=== PATIENT | female | born 1950 | race Caucasian/White ===

== ENCOUNTER 2022-05-13 21:30 | Inpatient (IN) | payer MEDICARE, OTHER, SELFPAY ==
[2022-05-13] MEDS ORDERED: NOREPINEPHRINE 8 MG/250 ML-D5W 250 ML ONE (21:45)
[2022-05-13] MEDS ORDERED: Albuterol Sulfate 2.5 mg/0.5 ml Neb ONE (21:47)
[2022-05-13] MEDS ORDERED: EPINEPHrine 1 MG/10 ML Abboject SYRINGE ONE (21:49)
[2022-05-13] MEDS ORDERED: Amiodarone 150 MG/3 ML VIAL ONE (21:49)
[2022-05-13] MEDS ORDERED: Magnesium 5 GM/10 ML Abboject SYRINGE ONE (21:49)
[2022-05-13 22:01] LABS: Mean Corpuscular HGB CONC 30.3 g/dL (32.0-36.0); Mean Platelet Volume 9.6 fL (7.4-10.4); Platelet Count 207 thou/uL (130-400); RBC Distribution Width 11.9 % (11.5-14.5); Red Blood Cell (RBC) Count 4.84 mill/uL (4.20-5.40); White Blood Cell (WBC) Count 10.9 thou/uL (4.8-10.8)
[2022-05-13 22:22] LABS: ALT (SGPT) 541 U/L (8-55); AST (SGOT) 1007 U/L (5-34); Albumin 3.3 g/dL (3.4-4.8); Alkaline Phosphatase 83 U/L (40-110); Anion Gap 27 mmol/L (10-20); BUN (Urea Nitrogen) 56 mg/dL (9.8-20.1); Bilirubin, Total 0.7 mg/dL (0.2-1.2); Calc. Creatinine Clearance 0 mL/min (70-130); Calcium 10.9 mg/dL (7.8-10.44); Carbon Dioxide 21 mmol/L (23-31); Chloride 94 mmol/L (98-107); Estimated GFR 43; Globulin 2.8 g/dL (2.4-3.5); Glucose 203 mg/dL (83-110); Potassium 5.2 mmol/L (3.5-5.1); Protein, Total 6.1 g/dL (5.8-8.1); Sodium 137 mmol/L (136-145)
[2022-05-13 22:24] LABS: Actual Bicarbonate (HCO3a) 18.2 mEq/L (22-28); Analyzer IN Cardio ER; Base Excess (BEa) -12.8 mEq/L (-2.0 to +3.0); Calcium, Ionized (arterial) 1.22 mmol/L (1.12-1.30); Carboxyhemoglobin (COHb) 1.1 gm% (0.0-3.0); Hemoglobin (Hb) 16.4 g/dL (12.0-16.0); O2 Tension (PaO2), arterial 362.8 mmHg (> 60.0); Potassium - ABG Lab 3.22 mmol/L (3.70-5.30)
[2022-05-13 22:29] LABS: Band 38 % (5-11); Lymphocytes 16 % (21-51); MDiff Complete? YES; Monocytes 16 % (0-10); Myelocyte 1 % (0-0); Neutrophil 29 % (42-75)
[2022-05-13 22:46] LABS: CO2 Tension 63.5 mmHg (35.0-45.0); Puncture Site RFA; pH, Arterial 7.08 (7.35-7.45)
[2022-05-13 22:47] LABS: ALV-art Gradient 270.825 mmHg (0-20)
[2022-05-13 22:49] LABS: CKMB 3.1 ng/mL (0-6.6)
[2022-05-13] MEDS ORDERED: Pantoprazole 40 MG VIAL ONE (23:05)
[2022-05-13] MEDS ORDERED: Electrolyte Replacement Protocol 1 EACH IVPB PRN (23:15)
[2022-05-13] MEDS ORDERED: Ventilator Sedation Protocol 1 EACH FS SCH (23:15)
[2022-05-13] MEDS ORDERED: Ondansetron PF 4 MG/2 ML Vial IVP PRN (23:15)
[2022-05-13] MEDS ORDERED: Fentanyl CADD 100 ML IV SCH (23:15)
[2022-05-13] MEDS ORDERED: HumaLOG 300 UNITS/3 ML VIAL SC PRN ×2 (23:15)
[2022-05-13] MEDS ORDERED: Sodium Bicarbonate 150 MEQ in Dextrose 5% in Water 1,000 ML IV SCH (23:15)
[2022-05-13] MEDS ORDERED: Amiodarone 150 MG, Admixture Fee 1 EACH in Dextrose 5% in Water 100 ML IVPB SCH (23:15)
[2022-05-13 23:25] LABS: SARS-CoV-2 NAA Rapid Test Not Detected (NotDetected)
[2022-05-13 23:48] LABS: Actual Bicarbonate (HCO3a) 19.2 mEq/L (22-28); Analyzer IN Cardio ER; CO2 Tension 49.7 mmHg (35.0-45.0); Calcium, Ionized (arterial) 1.15 mmol/L (1.12-1.30); Carboxyhemoglobin (COHb) 0.9 gm% (0.0-3.0); Hemoglobin (Hb) 17.4 g/dL (12.0-16.0); O2 Tension (PaO2), arterial 230.9 mmHg (> 60.0); Potassium - ABG Lab 3.15 mmol/L (3.70-5.30)
[2022-05-13 23:49] LABS: pH, Arterial 7.21 (7.35-7.45)
[2022-05-13 23:50] LABS: ALV-art Gradient 63.475 mmHg (0-20); Puncture Site RFA
[2022-05-14] MEDS ORDERED: Midazolam HCl 2 mg/2 ml Vial SLOW IVP PRN ×2 (00:25→13:41)
[2022-05-14] MEDS ORDERED: Propofol 1,000 MG/100 ML VIAL IV PRN (00:30)
[2022-05-14] MEDS ORDERED: DISCONTINUE PREVIOUS NARCOTIC PAIN MEDICATIONS AND BENZODIAZEPINES FS SCH (00:30)
[2022-05-14] MEDS ORDERED: Morphine 4 MG/ML VIAL SLOW IVP PRN ×2 (00:30→13:40)
[2022-05-14] MEDS ORDERED: Propofol BOLUS 1,000 MG/100 ML VIAL IV PRN (00:30)
[2022-05-14] MEDS ORDERED: Fentanyl BOLUS 250 ML IVPB PRN (00:30)
[2022-05-14] MEDS ORDERED: Fentanyl CADD 100 ML IV SCH (00:30)
[2022-05-14] MEDS ORDERED: Cefepime 2 GM in Sodium Chloride 0.9% 100 ML IVPB SCH ×2 (00:45→14:00)
[2022-05-14 01:21] LABS: Lactic Acid 12.5 mmol/L (0.5-2.2)
[2022-05-14] MEDS: methylPREDNISolone Sod Succ 40 MG VIAL IVP SCH ×3 (01:52→12:01)
[2022-05-14 02:10] VITALS: BMI 21.2
[2022-05-14] MEDS ORDERED: Enoxaparin Sodium 60 MG/0.6 ML SYRINGE SC SCH (03:00)
[2022-05-14 04:50] LABS: Band 65 % (5-11); Hemoglobin 17.2 g/dL (12.0-16.0); Lymphocytes 6 % (21-51); MDiff Complete? YES; Mean Corpuscular HGB CONC 30.6 g/dL (32.0-36.0); Mean Corpuscular Hemoglobin 30.5 pg (27.0-31.0); Mean Corpuscular Volume 99.6 fl (78.0-98.0); Metamyelocyte 10 % (0-0); Monocytes 3 % (0-10); Myelocyte 1 % (0-0); Neutrophil 14 % (42-75); Platelet Count 176 thou/uL (130-400); RBC Distribution Width 11.9 % (11.5-14.5); Reactive Lymphocytes 1 % (0-10); Red Blood Cell (RBC) Count 5.64 mill/uL (4.20-5.40); White Blood Cell (WBC) Count 9.4 thou/uL (4.8-10.8)
[2022-05-14 04:52] LABS: ALT (SGPT) 891 U/L (8-55); AST (SGOT) 1845 U/L (5-34); Alkaline Phosphatase 85 U/L (40-110); Anion Gap 23 mmol/L (10-20); BUN (Urea Nitrogen) 60 mg/dL (9.8-20.1); Bilirubin, Total 1.4 mg/dL (0.2-1.2); Calc. Creatinine Clearance 25 mL/min (70-130); Calcium 9.3 mg/dL (7.8-10.44); Carbon Dioxide 25 mmol/L (23-31); Chloride 94 mmol/L (98-107); Estimated GFR 31; Glucose 286 mg/dL (83-110); Potassium 3.6 mmol/L (3.5-5.1); Sodium 138 mmol/L (136-145)
[2022-05-14 07:41] LABS: Actual Bicarbonate (HCO3a) 31.1 mEq/L (22-28); Base Excess (BEa) 2.3 mEq/L (-2.0 to +3.0); Calcium, Ionized (arterial) 1.15 mmol/L (1.12-1.30); Carboxyhemoglobin (COHb) 0.3 gm% (0.0-3.0); Hemoglobin (Hb) 18.4 g/dL (12.0-16.0); O2 Tension (PaO2), arterial 97.4 mmHg (> 60.0); Potassium - ABG Lab 3.51 mmol/L (3.70-5.30); pH, Arterial 7.31 (7.35-7.45)
[2022-05-14 07:42] LABS: CO2 Tension 63.8 mmHg (35.0-45.0); Puncture Site RRA
[2022-05-14 08:31] LABS: Troponin I 1.397 ng/mL (< 0.028)
[2022-05-14] MEDS: NOREPINEPHRINE 8 MG/250 ML-D5W 250 ML IVPB PRN ×2 (08:47→13:16)
[2022-05-14] MEDS ORDERED: Famotidine/PF 20 mg/2ml Vial SLOW IVP SCH (09:00)
[2022-05-14] MEDS ORDERED: FLU VACC QS2022-23(65YR UP)/PF 240 MCG/0.7 ML SYRINGE IM ONE (09:00)
[2022-05-14 10:59] VITALS: BP 118/61
[2022-05-14 11:30] LABS: Troponin I 1.725 ng/mL (< 0.028)
[2022-05-14 13:37] VITALS: TEMP 101.5
[2022-05-14] MEDS ORDERED: Scopolamine 1.5 mg/72 hour Patch TD SCH (14:00)
[2022-05-14] MEDS ORDERED: metroNIDAZOLE 500 MG in Premix Bag 1 BAG IVPB SCH (14:00)
[2022-05-15] MEDS ORDERED: Enoxaparin Sodium 60 MG/0.6 ML SYRINGE SC SCH (03:00)
== END 2022-05-14 16:10 | disposition expired ==
LOC: ERS 21:30 → EDBD 22:56 → CCU 22:56
PROVIDERS: ADMIT Internal Medicine; ATTEND Internal Medicine
PROC: 5A12012 Performance of Cardiac Output, Single, Manual (ICD-10-PCS; principal; 2022-05-13)
PROC: 3E033XZ Introduction of Vasopressor into Peripheral Vein, Percutaneous Approach (ICD-10-PCS; 2022-05-13)
PROC: 02HV33Z Insertion of Infusion Device into Superior Vena Cava, Percutaneous Approach (ICD-10-PCS; 2022-05-13)
PROC: 5A1935Z Respiratory Ventilation, Less than 24 Consecutive Hours (ICD-10-PCS; 2022-05-13)
DX: I46.9 Cardiac arrest, cause unspecified (principal); Z66 Do not resuscitate; J96.01 Acute respiratory failure with hypoxia; I21.A1 Myocardial infarction type 2; K72.00 Acute and subacute hepatic failure without coma; E87.4 Mixed disorder of acid-base balance; N17.9 Acute kidney failure, unspecified; I47.20 Ventricular tachycardia, unspecified; Z20.822 Contact with and (suspected) exposure to COVID-19; E87.5 Hyperkalemia; Z78.1 Physical restraint status; Z28.82 Immunization not carried out because of caregiver refusal
CPT/HCPCS: 36415; 36416; 36600; 71045; 80053; 82553; 82805; 83605; 83880; 84443; 84484; 85025; 93005; 94003; 94644; C9113; J0171; J0282; J0692; J1650; J1815; J2250; J2270; J2920; J3010; J3475; J3490; J7070; J7611; J7620; S0028; U0002